=== PATIENT | male | born 1995 | race Hispanic/Latino ===

== ENCOUNTER 2017-01-13 05:05 | Emergency (ER) | payer OTHER ==
[2017-01-13 05:17] VITALS: BP 130/57
[2017-01-13 06:03] LABS: Basophils % (Auto) 0.4 % (0.0-1.8); Eosinophils % (Auto) 0.6 % (0.0-4.3); Hematocrit 48.7 % (35.5-45.6); Hemoglobin 16.1 gm/dl (11.8-15.2); Mean Corpuscular HGB Conc 33 % (32-34); Mean Corpuscular Hemoglobin 29 pg (28-32); Mean Corpuscular Volume 86 fl (84-94); Platelet Count 278 K/mm3 (140-440); Red Blood Count 5.66 M/mm3 (3.65-5.03); Red Cell Distribution Width 14.5 % (13.2-15.2); White Blood Count 12.6 K/mm3 (4.5-11.0)
[2017-01-13 06:18] LABS: Alanine Aminotransferase 29 units/L (7-56); Albumin 4.6 g/dL (3.9-5); Albumin/Globulin Ratio 1.5 %; Alkaline Phosphatase 85 units/L (35-129); Anion Gap 20 mmol/L; BUN/Creatinine Ratio 16.66; Bilirubin,Total 0.6 mg/dL (0.1-1.2); Blood Urea Nitrogen 15 mg/dL (9-20); Calcium 9.3 mg/dL (8.4-10.2); Carbon Dioxide 24 mmol/L (22-30); Chloride 105.5 mmol/L (98-107); Glucose 124 mg/dL (75-100); Lipase 15 units/L (13-60); Potassium 3.8 mmol/L (3.6-5.0); Sodium 146 mmol/L (137-145); Total Protein 7.7 g/dL (6.3-8.2)
--- NOTE | 2017-01-14 06:49 | ED Elopement Review ---
ED Pt Elopement review - Results review Lab results: Laboratory Tests 01/13/17 01/13/17 05:45 05:45 WBC 12.6 H RBC 5.66 H Hgb 16.1 H Hct 48.7 H MCV 86 MCH 29 MCHC 33 RDW 14.5 Plt Count 278 Lymph % (Auto) 21.1 [place] % (Auto) 8.7 H Eos % (Auto) 0.6 Baso % (Auto) 0.4 Lymph # 2.7 [place] # 1.1 H Eos # 0.1 Baso # 0.0 Seg Neutrophils % 69.2 Seg Neutrophils # 8.7 H Sodium 146 H Potassium 3.8 Chloride 105.5 Carbon Dioxide 24 Anion Gap 20 BUN 15 Creatinine 0.9 Estimated GFR > 60 BUN/Creatinine Ratio 16.66 Glucose 124 H Calcium 9.3 Total Bilirubin 0.6 AST 30 ALT 29 Alkaline Phosphatase 85 Total Protein 7.7 Albumin 4.6 Albumin/Globulin Ratio 1.5 Lipase 15 - Call Back decision Pt Call Back Decision: No action required
== END 2017-01-13 05:46 | disposition left against medical advice (07) ==
LOC: ED 05:05
DX: R10.13 Epigastric pain (principal); Z53.21 Procedure and treatment not carried out due to patient leaving prior to being seen by health care provider
CPT/HCPCS: 36415; 80053; 83690; 85025; 93005; 93010